=== PATIENT | female | born 1965 | race Caucasian/White ===

== ENCOUNTER 2018-10-06 17:25 | Emergency (ER) | payer OTHER ==
[2018-10-06] MEDS: HYDROCODONE/APAP (5/325) TAB PO (18:43)
[2018-10-06] MEDS: IBUPROFEN 600 MG TAB PO (18:43)
== END 2018-10-06 21:03 | disposition home or self-care (01) ==
LOC: FTE 17:25
DX: M62.838 Other muscle spasm (principal); J45.909 Unspecified asthma, uncomplicated
CPT/HCPCS: 72125; 73000; 73030; 73510; 99284-25